=== PATIENT | female | born 1995 | race Asian ===

== ENCOUNTER 2018-08-21 06:57 | Emergency (ER) | payer SELFPAY ==
[2018-08-21] MEDS ORDERED: IV NORMAL SALINE 1,000ML 1,000 ML IV SCH (07:13)
[2018-08-21] MEDS ORDERED: MORPHINE SULFATE 2 MG/ML DISP.SYRIN. IV/SQ PRN (07:15)
[2018-08-21] MEDS ORDERED: ONDANSETRON PF 4 MG/2 ML VIAL. IV ONE (07:15)
[2018-08-21] MEDS ORDERED: ONDANSETRON PF 4 MG/2 ML VIAL. ONE (07:27)
--- NOTE | 2018-08-21 07:28 | PHYS DOC ---
Adult General Chief Complaint Chief Complaint: abd pain HPI HPI Patient is a 23-year-old female who presents with numerous complaints to include chest pain, abdominal pain and headache. Patient states that over the last 2 days she has had pain in her upper abdomen as well as pain in her mid chest that radiates into her shoulder. She states that the pain in her abdomen is worsened when she eats greasy foods. She rates pain as moderate. She states that she has a family history of gallbladder disease. She also indicates that she has a history of migraine headaches and states that she usually takes ibuprofen but she states the last time she took the ibuprofen it made her stomach pain worse. She states that she does have a history of peptic ulcer disease. Patient also indicates that she has had nausea and vomiting and has had difficulty in keeping things down. Review of Systems Review of Systems Constitutional: Denies fever or chills [] Respiratory: Denies cough or shortness of breath [] Cardiovascular: No additional information not addressed in HPI [] GI: Complains of upper abdominal pain with nausea and vomiting [] : Denies dysuria or hematuria [] Neurologic: Complains of headache without focal weakness or sensory changes [] All other systems were reviewed and found to be within normal limits, except as documented in this note. Physical Exam Physical Exam Constitutional: Well developed, well nourished, no acute distress, non-toxic appearance. [] HENT: Normocephalic, atraumatic, bilateral external ears normal, oropharynx moist, no oral exudates, nose normal. [] Eyes: PERRLA, EOMI, conjunctiva normal, no discharge. [] Neck: Normal range of motion, no tenderness, supple, no stridor. [] Cardiovascular: Regular rate and rhythm [] Lungs & Thorax: Bilateral breath sounds clear to auscultation [] Abdomen: Bowel sounds normal, soft, with epigastric and right upper quadrant tenderness. [] Skin: Warm, dry, no erythema, no rash. [] Extremities: No tenderness, no cyanosis, no clubbing, ROM intact, no edema. [] Neurologic: Alert and oriented X 3, no focal deficits noted. [] EKG EKG [] Radiology/Procedures Radiology/Procedures [] Course & Med Decision Making Course & Med Decision Making Pertinent Labs and Imaging studies reviewed. (See chart for details) [] Dragon Disclaimer Dragon Disclaimer This electronic medical record was generated, in whole or in part, using a voice recognition dictation system. Departure Departure: Impression: Primary Impression: Gastritis Additional Impression: GERD (gastroesophageal reflux disease) Disposition: 01 HOME, SELF-CARE Condition: STABLE Referrals: PCP,GHASSAN (PCP) Patient Instructions: Diet for Gastroesophageal Reflux Disease, Adult, Gastritis, Adult, Gastroesophageal Reflux Disease, Adult Scripts Ondansetron Hcl (ZOFRAN) 4 Mg Tablet 1 TAB PO Q8HRS PRN for NAUSEA, #12 TAB Prov: ENVILLE MCKEON Jr. DO 08/21/18 Pantoprazole Sodium (PROTONIX) 40 Mg Tablet.dr 1 TAB PO DAILY for gastritis, #30 TAB Prov: NEVILLE MCKEON Jr. DO 08/21/18 Problem Qualifiers Primary Impression: Gastritis Gastritis type: unspecified gastritis Chronicity: unspecified Gastritis bleeding: without bleeding Qualified Codes: K29.70 - Gastritis, unspecified, without bleeding Additional Impression: GERD (gastroesophageal reflux disease) Esophagitis presence: esophagitis presence not specified Qualified Codes: K21.9 - Gastro-esophageal reflux disease without esophagitis NEVILLE MCKEON Jr. DO Aug 21, 2018 07:28
[2018-08-21 07:59] LABS: BASO % 0 % (0-3); EOS % 0 % (0-3); HEMATOCRIT 39.2 % (36.0-47.0); HEMOGLOBIN 13.1 g/dL (12.0-15.5); LYMPH # 2.3 x10^3/uL (1.0-4.8); LYMPH % 32 % (24-48); MEAN CORPUSCULAR HEMOGLOBIN 27 pg (25-35); MEAN CORPUSCULAR HGB CONC 34 g/dL (31-37); MEAN CORPUSCULAR VOLUME 80 fL (79-100); MONO # 0.7 x10^3/uL (0.0-1.1); MONO % 9 % (0-9); NEUT # 4.2 x10^3uL (1.8-7.7); NEUT % 58 % (31-73); PLATELET COUNT 400 x10^3/uL (140-400); RED CELL DISTRIBUTION WIDTH 15.3 % (11.5-14.5); WHITE BLOOD COUNT 7.3 x10^3/uL (4.0-11.0)
[2018-08-21 08:05] LABS: BARBITURATES NEG (NEG); BENZODIAZEPINES NEG (NEG); CANNABINOIDS NEG (NEG); COCAINE NEG (NEG); METHADONE NEG (NEG); OPIATES NEG (NEG); PHENCYCLIDINE NEG (NEG)
[2018-08-21 08:06] LABS: AMPHETAMINE/METHAMPHETAMINE NEG (NEG)
[2018-08-21 08:08] LABS: ALBUMIN 3.5 g/dL (3.4-5.0); ALBUMIN/GLOBULIN RATIO 0.9 (1.0-1.7); CALCIUM 8.8 mg/dL (8.5-10.1); CREATININE 0.8 mg/dL (0.6-1.0); GFR 90.5; POTASSIUM 3.8 mmol/L (3.5-5.1); TOTAL BILIRUBIN 0.2 mg/dL (0.2-1.0); TOTAL PROTEIN 7.6 g/dL (6.4-8.2)
[2018-08-21] MEDS ORDERED: IOHEXOL 300 MG/ML 75 ML VIAL. IV ONE (09:00)
--- NOTE | 2018-08-21 09:37 | RAD ---
Examination: CT ABD PELV W/ IV CONTRST ONLY History: abd pain Comparison/Correlation: None Findings: Axial images of the abdomen and pelvis were obtained following IV contrast. Sagittal and coronal reformatted images were provided. The visualized lung bases are clear. Diffuse low-attenuation of the right hepatic lobe is present. This most likely represents fatty infiltration. Opacification of the right portal vein and hepatic veins is unremarkable. Spleen, pancreas, adrenal glands, and kidneys are normal. No enlarged abdominal or pelvic lymph nodes. Mesenteric lymph nodes are present but not enlarged. Appendix is normal. No extraluminal gas. No bowel obstruction. No ascites or pelvic free fluid. Bilateral adnexal follicles or cysts are present and physiologic in appearance. Urinary bladder is unremarkable. Uterus is grossly unremarkable. Bony structures are unremarkable. Impression: No acute inflammatory process or mass. Bilateral adnexal follicles or cysts are present in appearance. Electronically signed by: Gerson Walker MD (08/21/2018 9:32 AM) [place]
[2018-08-21] MEDS ORDERED: ONDA4TAB7 PO (10:03)
[2018-08-21] MEDS ORDERED: PANT40TA3 PO (10:03)
[2018-08-21 10:20] VITALS: BP 118/71
--- NOTE | 2018-08-21 18:08 | EKG ---
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
== END 2018-08-21 10:20 | disposition home or self-care (01) ==
LOC: ER 06:57
DX: K29.70 Gastritis, unspecified, without bleeding (principal); K21.9 Gastro-esophageal reflux disease without esophagitis; R51 Headache; R11.2 Nausea with vomiting, unspecified
CPT/HCPCS: 36415; 74177; 80053; 80307; 81025; 83690; 84484; 85025; 93005; 96361; 96374; 96375; 99284; J2270; J2405; Q9967; J7030